=== PATIENT | male | born 1980 | race Caucasian/White ===

== ENCOUNTER 2025-02-17 12:07 | Emergency (ER) | payer OTHER ==
[~2025-02-17] VITALS: Ht 180.3 cm; Wt 76.7 kg
[2025-02-17] MEDS ORDERED: DEPAKOTE500 MG PO ×2 (12:17→12:37)
[2025-02-17] MEDS ORDERED: VENTOLIN HFA18 GM (12:17)
[2025-02-17] MEDS ORDERED: DIAZEPAM5 MG PO (12:18)
[2025-02-17 12:21] LABS: BASOPHILS 0.3 % (0.2-1.2); EOSINOPHILS 1.8 % (0.8-7.0); LYMPHOCYTES 33.5 % (21.8-53.1); MCH 31.8 PG (25.7-32.2); MCHC 35.3 g/dL (32.3-36.5); MCV 90.0 fL (79.0-92.2); MONOCYTES 7.7 % (5.3-12.2); NEUTROPHILS 56.5 % (34.0-67.9); RBC 4.91 M/uL (4.63-6.08)
[2025-02-17] MEDS ORDERED: SODIUM CHLORIDE 0.9% 1,000 ML IV ONE (12:30)
[2025-02-17] MEDS ORDERED: DIVALPROEX SODIUM 500 MG TABLET.DR PO ONE (12:30)
[2025-02-17 12:50] LABS: ALT (SGPT) 34.0 U/L (14-59); AST (SGOT) 20.0 U/L (15-37); GLOMERULAR FILTRATION RATE,EST 81.0 mL/min (>60); PROTEIN, TOTAL 6.8 g/dL (6.4-8.2); UREA NITROGEN 19.0 mg/dL (7-18)
== END 2025-02-17 13:22 | disposition home or self-care (01) ==
LOC: ED 12:07
PROVIDERS: Emergency Medicine
DX: G40.909 Epilepsy, unspecified, not intractable, without status epilepticus (principal); Z79.899 Other long term (current) drug therapy
CPT/HCPCS: 36415; 80053; 85025; 99284